=== PATIENT | female | born 2000 | race Caucasian/White ===

== ENCOUNTER 2023-03-28 15:38 | Emergency (ER) | payer BC ==
[2023-03-28 16:39] LABS: BASOPHILS % (AUTO) 0.4 %; EOSINOPHILS # (AUTO) 0.1 10^3/uL (0.0-0.7); EOSINOPHILS % (AUTO) 1.3 %; HCT - HEMATOCRIT 48.4 % (37.0-47.0); HGB - HEMOGLOBIN 16.5 g/dL (12.0-16.0); LYMPHOCYTES # (AUTO) 1.9 10^3/uL (1.5-3.5); LYMPHOCYTES % (AUTO) 23.5 %; MEAN CORPUSCULAR HEMOGLOBIN 29.9 pg (27.0-31.0); MEAN CORPUSCULAR HGB CONC 34.1 g/dL (32.0-36.0); MEAN CORPUSCULAR VOLUME 87.8 fL (81.0-99.0); MONOCYTES # (AUTO) 0.6 10^3/uL (0.0-1.0); MONOCYTES % (AUTO) 7.6 %; NEUTROPHILS # (AUTO) 5.3 10^3/uL (1.5-6.6); NEUTROPHILS % (AUTO) 66.9 %; PLT - PLATELET COUNT 165 10^3/uL (130-450); RED BLOOD COUNT 5.51 10^6/uL (4.20-5.40); WHITE BLOOD COUNT 7.9 x10^3/uL (4.8-10.8)
[2023-03-28 16:45] LABS: BILIRUBIN,URINE NEGATIVE (NEGATIVE); GLUCOSE, URINE (UA) NEGATIVE (NEGATIVE); KETONES,URINE (UA) 15 mg/dL (NEGATIVE); LEUKOCYTE ESTERASE, URINE SMALL (NEGATIVE); NITRITE,URINE POSITIVE (NEGATIVE); OCCULT BLOOD,URINE NEGATIVE (NEGATIVE); PH,URINE 5.5 PH (5.0-7.5); PROTEIN,URINE NEGATIVE (NEGATIVE); UROBILINOGEN,URINE 0.2 (NORMAL) E.U./dL (NORMAL)
[2023-03-28 16:51] LABS: CLARITY,URINE HAZY (CLEAR); HCG UR QUAL NEGATIVE
--- NOTE | 2023-03-28 16:55 | ED Physician Documentation ---
PD HPI ABD PAIN - Stated complaint Stated Complaint: ABD PX,LT LEG PX - Chief complaint Chief Complaint: Abd Pain - History obtained from History obtained from: Patient - History of Present Illness Timing - onset: How many days ago (has had lower abd/pelvic pain fo the past 5-6 days. Then fell today, landing onto buttock, with pain to left hip and iliac crest area.) Timing - duration: Days (5-6 days for pelvic pain and today for hip injury.) Timing - details: Abrupt onset Quality: Cramping, Aching, Pain Radiation: No: Lower back, Left flank, Right flank Associated symptoms: Nausea. No: Fever, Vomiting, Diarrhea, Vaginal bleeding, Vaginal dc Similar symptoms before: Has not had sx before Review of Systems Constitutional: denies: Fever, Chills : denies: Dysuria, Discharge, Vaginal bleeding Skin: denies: Rash, Lesions Neurologic: denies: Focal weakness, Numbness PD PAST MEDICAL HISTORY - Past Medical History Past Medical History: No - Past Surgical History Past Surgical History: No - Present Medications Home Medications: Ambulatory Orders Medication Instructions Recorded Confirmed Ibuprofen [Motrin] 600 mg PO TID PRN #25 tab 03/28/23 cephALEXin [Keflex] 500 mg PO TID #20 cap 03/28/23 - Allergies Allergies/Adverse Reactions: Allergies Allergy/AdvReac Type Severity Reaction Status Date / Time No Known Drug Allergies Allergy Verified 03/28/23 15:59 - Social History Does the pt smoke?: No Smoking Status: Never smoker PD ED PE NORMAL - Vitals Vital signs reviewed: Yes - General General: Alert and oriented X 3, Well developed/nourished, Other (appears in pain with left hip and lower back movement. ) - Abdomen Abdomen: Normal bowel sounds, Soft, Non distended, No organomegaly, Other (tender in lower abd mid and left more without guarding nor percussion tenderness. Consider ovarian/uterine. Can check UA. ) - Female Female : Deferred - Derm Derm: Normal color, Warm and dry - Extremities Extremities: Other (left lateral hip at greater trochanter with some tenderness but no deformity. No pain with distraction manually of hip nor with rotation/impaction. Low back soft tissue tender at iliac crest and mid SI area. ) - Neuro Neuro: Alert and oriented X 3, No motor deficit, No sensory deficit Results - Vitals Vitals: Oxygen O2 Source Room air - Labs Labs: Microbiology 03/28/23 16:40 Urine Culture - Preliminary Urine,Clean Catch Laboratory Tests 03/28/23 03/28/23 03/28/23 16:28 16:28 16:40 WBC 7.9 RBC 5.51 H Hgb 16.5 H Hct 48.4 H MCV 87.8 MCH 29.9 MCHC 34.1 RDW 13.0 Plt Count 165 MPV 12.0 H Neut # (Auto) 5.3 Lymph # (Auto) 1.9 [place] # (Auto) 0.6 Eos # (Auto) 0.1 Baso # (Auto) 0.0 Absolute Nucleated RBC 0.00 Nucleated RBC % 0.0 Sodium 139 Potassium 3.7 Chloride 105 Carbon Dioxide 26 Anion Gap 8.0 BUN 8 Creatinine 0.7 Estimated GFR (MDRD) 106 Glucose 94 Calcium 10.4 H Total Bilirubin 0.8 AST 25 ALT 70 H Alkaline Phosphatase 88 Total Protein 8.1 Albumin 5.2 Globulin 2.9 Albumin/Globulin Ratio 1.8 Lipase 17 Urine Color YELLOW Urine Clarity HAZY Urine pH 5.5 Ur Specific [place] 1.025 Urine Protein NEGATIVE Urine Glucose (UA) NEGATIVE Urine Ketones 15 H Urine Occult Blood NEGATIVE Urine Nitrite POSITIVE H Urine Bilirubin NEGATIVE Urine Urobilinogen 0.2 (NORMAL) Ur Leukocyte Esterase SMALL H Urine RBC 0-5 Urine WBC 6-10 H Ur Squamous Epith Cells NONE SEEN Urine Bacteria Moderate H Ur Microscopic Review INDICATED Urine Culture Comments INDICATED Urine HCG, Qual NEGATIVE - Rads (name of study) left hip and pelvis Relevant Findings:: Prelim report reviewed (no fractures nor acute abnnormalities. 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 Pelvic US no acute process. Presume ovarian inflammation/pains as she is midcycle-keaton. Can treat with NSAIDs and pain meds/tylenol in addition to abx for likely UTI. ), considered differential (different complaints with days of lower abd/pelvic cramping pain, with some dysuria. No vag bleeding. COnsider HCG, UA, pelvic US. no GI symptoms. Now also with left hip strain after a fall/twist. No radicular symptoms. ), d/w patient Departure - Departure Disposition: 01 Home, Self Care Clinical Impression: Hip strain, Fall from slip, trip, or stumble, Lower abdominal pain, UTI (urinary tract infection) Condition: Stable Record reviewed to determine appropriate education?: Yes Instructions: ED Strain Muscle Ext, ED UTI Cystitis Female Prescriptions: cephALEXin [Keflex] 500 mg PO TID #20 cap Ibuprofen [Motrin] 600 mg PO TID PRN #25 tab PRN Reason: Pain Comments: Your urine does show signs of a bladder infection. Hopefully this is the simple cause for your lower abdominal pain over the past several days. We can treat it with cephalexin 3 times daily for the next week. I would also suggest use of ibuprofen 3 times daily with food to help with the pains of both that and your hip/pelvis. The x-ray of your hip and pelvis did not show any fractures. More commonly would be some bruising or contusion in the area and also some straining of the ligaments and muscles. We did do a ultrasound of the pelvis to ensure no other complicating factors such as cysts or ruptured cyst etc. Your test is negative. Stay well-hydrated. Use the above medications of ibuprofen and cephalexin. Add Tylenol 500 to 650 mg every 4-6 hours if needed for pains. Recheck if not improving well over the next several days. Activity as tolerated. I sent your prescriptions to your preferred pharmacy. Forms: PCP List Discharge Date/Time: 03/28/23 20:10
[2023-03-28 17:05] LABS: ALBUMIN 5.2 g/dL (3.2-5.5); ALBUMIN/GLOBULIN RATIO 1.8 (1.0-2.2); BILIRUBIN,TOTAL 0.8 mg/dL (0.2-1.0); CALCIUM 10.4 mg/dL (8.5-10.3); CREATININE 0.7 mg/dL (0.6-1.3); POTASSIUM 3.7 mmol/L (3.5-4.5); TOTAL PROTEIN 8.1 g/dL (6.4-8.9)
[2023-03-28 17:17] LABS: BACTERIA,URINE Moderate /HPF (None Seen); RBC,URINE 0-5 /HPF (0-5); SQUAMOUS EPITHELIAL CELL,UR NONE SEEN (<= Few)
--- NOTE | 2023-03-28 17:49 | XRAY Report ---
PROCEDURE: Hip w/Pelvis 2-3V LT INDICATIONS: fall with left hip/pelvic pain TECHNIQUE: AP pelvis with lateral view(s) of the left hip(s). COMPARISON: None. FINDINGS: Bones: No fractures or dislocations. No suspicious bony lesions. Soft tissues: No suspicious soft tissue calcifications or masses. IMPRESSION: No visualized acute fracture or dislocation. However, occult injury cannot be excluded. Recommend pierre rt interval imaging follow-up in 7-10 days as clinically indicated for additional evaluation. Reviewed by: Luanne Jorgensen MD on 03/28/2023 5:48 PM PST Approved by: Luanne Jorgensen MD on 03/28/2023 5:48 PM PST Station ID: [id number]
[2023-03-28] MEDS ORDERED: cephALEXin 250 MG CAPSULE PO STA (18:26)
--- NOTE | 2023-03-28 20:06 | Ultrasound Report ---
PROCEDURE: Pelvic w/Doppler Complete INDICATIONS: lower pelvic pain for a week TECHNIQUE: Real-time scanning was performed of the pelvic organs, with image documentation. Doppler interrogati on was performed of the ovaries bilaterally. COMPARISON: None. FINDINGS: Uterus: Uterus is anteverted and normal in size at 6.9 x 2.9 x 4.4 cm. The myometrium is homogeneou s. The endometrium measures 6 mm in combined thickness. Ovaries: The right ovary measures 3.8 x 2.1 x 3.2 cm, with a calculated ovarian volume of 13 cc. Th e left ovary measures 4.1 x 2.1 x 1.7 cm, with a calculated ovarian volume of 8 cc. Appropriate bloo d flow to the ovaries with Doppler interrogation. Less than 12 follicles can be seen in each ovary. No adnexal masses are seen. No cystic lesions measuring greater than 3 cm. Other: No pathologic free abdominal or pelvic fluid. IMPRESSION: Normal Doppler flow to the ovaries. Unremarkable pelvic ultrasound. Reviewed by: Augie Smith on 03/28/2023 8:05 PM [facility] Approved by: Augie Smith on 03/28/2023 8:05 PM [facility] Station ID: [id number]
[2023-03-28 20:15] VITALS: BP 110/69; O2SAT 98
--- NOTE | 2023-03-31 04:50 | ED Physician Documentation ---
ED Addendum - Addendum Addendum: 03/31/23 04:49 I was presented with a culture results in the morning on 03-31-2023, indicating cephalosporin resistance on the culture from the patient's urine. Patient has no known drug allergies, so I did send a prescription for ciprofloxacin, to which the bacteria is sensitive, to the [facility] pharmacy for the patient. Nursing staff was instructed to call the patient and let her know to go today and pick the new antibiotic up and start it today and stop taking the Keflex.
== END 2023-03-28 20:10 | disposition home or self-care (01) ==
LOC: ED 15:38
DX: S76.012A Strain of muscle, fascia and tendon of left hip, initial encounter (principal); W01.0XXA Fall on same level from slipping, tripping and stumbling without subsequent striking against object, initial encounter; N39.0 Urinary tract infection, site not specified
CPT/HCPCS: 36415; 73502; 76856; 80053; 81001; 81025; 83690; 85025; 87077; 87086; 87181; 93975; 99284; A9270; 81003

== ENCOUNTER 2023-10-29 13:51 | Emergency (ER) | payer BC ==
[2023-10-29 14:46] LABS: BASOPHILS % (AUTO) 0.6 %; EOSINOPHILS # (AUTO) 0.3 10^3/uL (0.0-0.7); EOSINOPHILS % (AUTO) 3.6 %; HGB - HEMOGLOBIN 14.8 g/dL (12.0-16.0); LYMPHOCYTES # (AUTO) 2.4 10^3/uL (1.5-3.5); LYMPHOCYTES % (AUTO) 33.4 %; MEAN CORPUSCULAR HEMOGLOBIN 29.5 pg (27.0-31.0); MEAN CORPUSCULAR HGB CONC 32.9 g/dL (32.0-36.0); MEAN CORPUSCULAR VOLUME 89.6 fL (81.0-99.0); MONOCYTES # (AUTO) 0.6 10^3/uL (0.0-1.0); NEUTROPHILS # (AUTO) 3.9 10^3/uL (1.5-6.6); NEUTROPHILS % (AUTO) 54.1 %; PLT - PLATELET COUNT 198 10^3/uL (130-450); RED BLOOD COUNT 5.02 10^6/uL (4.20-5.40); RED CELL DISTRIBUTION WIDTH 12.6 % (12.0-15.0); WHITE BLOOD COUNT 7.1 x10^3/uL (4.8-10.8)
[2023-10-29] MEDS: SODIUM CHLORIDE 0.9% 1,000 ML IV STA (14:50)
[2023-10-29 14:58] LABS: ALBUMIN 4.4 g/dL (3.2-5.5); ALBUMIN/GLOBULIN RATIO 1.5 (1.0-2.2); BILIRUBIN,TOTAL 0.3 mg/dL (0.2-1.0); CREATININE 0.7 mg/dL (0.6-1.3); POTASSIUM 3.5 mmol/L (3.5-4.5); TOTAL PROTEIN 7.3 g/dL (6.4-8.9)
[2023-10-29 15:34] LABS: BILIRUBIN,URINE NEGATIVE (NEGATIVE); GLUCOSE, URINE (UA) NEGATIVE (NEGATIVE); KETONES,URINE (UA) NEGATIVE (NEGATIVE); LEUKOCYTE ESTERASE, URINE NEGATIVE (NEGATIVE); NITRITE,URINE NEGATIVE (NEGATIVE); OCCULT BLOOD,URINE NEGATIVE (NEGATIVE); PROTEIN,URINE NEGATIVE (NEGATIVE); UROBILINOGEN,URINE 0.2 (NORMAL) E.U./dL (NORMAL)
[2023-10-29 15:36] LABS: CLARITY,URINE CLEAR (CLEAR); HCG UR QUAL NEGATIVE
--- NOTE | 2023-10-29 15:38 | ED Physician Documentation ---
History of Present Illness - Stated complaint Stated Complaint: DIZZINESS,LIGHTHEADED - Chief complaint Chief Complaint: General - History obtained from History obtained from: Patient - History of Present Illness Pain level max: 0 Pain level now: 0 - Additonal information Additional information: Patient is a 23-year-old female who presents to the emergency department complaining of lightheadedness intermittently for about the past week. She states that if she stands up quickly she feels lightheaded like she is going to pass out. 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 She states she does not drink much water. Does not use energy drinks. No smoking, no vaping. No chest pain. No palpitations. No falls. No loss of consciousness. No spinning. No recent illnesses. Denies any possibility of . No urinary symptoms. Occasionally has small intermittent headaches, none currently. Headaches are not severe. Better with lying down or sitting, worse with standing. Review of Systems Constitutional: denies: Fever GI: denies: Vomiting : denies: Now EGA Skin: denies: Rash Musculoskeletal: denies: Neck pain, Back pain Neurologic: denies: Focal weakness, Numbness, Seizure, Confused, Head injury PD PAST MEDICAL HISTORY - Past Medical History Past Medical History: No - Past Surgical History Past Surgical History: No - Allergies Allergies/Adverse Reactions: Allergies Allergy/AdvReac Type Severity Reaction Status Date / Time No Known Drug Allergies Allergy Verified 10/29/23 13:59 - Social History Does the pt smoke?: No Smoking Status: Never smoker Does the pt drink ETOH?: No Does the pt have substance abuse?: No - Immunizations Immunizations are current?: Yes PD ED PE NORMAL - Vitals Vital signs reviewed: Yes - General General: Alert and oriented X 3, No acute distress, Well developed/nourished - HEENT HEENT: Atraumatic, PERRL, EOMI, Ears normal, Moist mucous membranes, Pharynx benign - Neck Neck: Supple, no meningeal sign, No bony TTP - Cardiac Cardiac: RRR, Strong equal pulses - Respiratory Respiratory: No respiratory distress, Clear bilaterally - Abdomen Abdomen: Soft, Non tender, Non distended - Derm Derm: Warm and dry - Extremities Extremities: No edema, No calf tenderness / cord - Neuro Neuro: Alert and oriented X 3, 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 Negative Hallpike.) Eye Opening: Spontaneous Motor: Obeys Commands Verbal: Oriented GCS Score: 15 - Psych Psych: Normal mood, Normal affect Results - Vitals Vitals: Vital Signs - 24 hr 10/29/23 10/29/23 10/29/23 13:55 14:34 15:43 Temperature 36.7 C Heart Rate 89 70 Heart Rate [ 66 Sitting] Heart Rate [ 69 Standing] Heart Rate [ 68 Supine] Respiratory 16 16 Rate Blood Pressure 123/74 Blood Pressure 115/82 H [Sitting] Blood Pressure 118/79 [Standing] Blood Pressure 106/69 [Supine] O2 Saturation 98 100 Oxygen O2 Source Room air - EKG (time done) 1500 EKG releavant findings:: EKG personally interpreted by author of this note. Relevant findings are: Rate: Rate (enter#) (73) Rhythm: NSR Alexander: Normal Intervals: Normal OR QRS: Normal Ischemia: Normal ST segments - Labs Labs: Laboratory Tests 10/29/23 10/29/23 10/29/23 14:41 14:41 15:21 WBC 7.1 RBC 5.02 Hgb 14.8 Hct 45.0 MCV 89.6 MCH 29.5 MCHC 32.9 RDW 12.6 Plt Count 198 MPV 11.0 H Neut # (Auto) 3.9 Lymph # (Auto) 2.4 [place] # (Auto) 0.6 Eos # (Auto) 0.3 Baso # (Auto) 0.0 Absolute Nucleated RBC 0.00 Nucleated RBC % 0.0 Sodium 137 Potassium 3.5 Chloride 105 Carbon Dioxide 28 Anion Gap 4.0 L BUN 19 Creatinine 0.7 Estimated GFR (MDRD) 105 Glucose 118 H Calcium 10.0 Total Bilirubin 0.3 AST 15 ALT 24 Alkaline Phosphatase 63 Total Protein 7.3 Albumin 4.4 Globulin 2.9 Albumin/Globulin Ratio 1.5 Lipase 31 Urine Color YELLOW Urine Clarity CLEAR Urine pH 6.0 Ur Specific [place] >=1.030 H Urine Protein NEGATIVE Urine Glucose (UA) NEGATIVE Urine Ketones NEGATIVE Urine Occult Blood NEGATIVE Urine Nitrite NEGATIVE Urine Bilirubin NEGATIVE Urine Urobilinogen 0.2 (NORMAL) Ur Leukocyte Esterase NEGATIVE Ur Microscopic Review NOT INDICATED Urine Culture Comments NOT INDICATED Urine HCG, Qual NEGATIVE PD Medical Decision Making - ED course Complexity details: reviewed results, re-evaluated patient, considered differential, d/w patient ED course: Patient is well-appearing, nontoxic. Afebrile. No significant lab abnormalities other than elevated BUN to creatinine ratio and a concentrated urine consistent with dehydration. Given IV fluids and does not feel lightheaded anymore. Does not have any vertiginous symptoms. No nystagmus. No focal neurological deficits. EKG is normal. Patient is not orthostatic in the emergency department but had received approximately 500 mL of fluid before the orthostatic vital signs. Recommend that she increase her fluid intake at home and follow-up with her doctor for further care. She will return if she worsens. Patient counseled regarding signs and symptoms for which I believe and urgent re-evaluation would be necessary. Patient with good understanding of and agreement to plan and is comfortable going home at this time This document was made in part using voice recognition software. While efforts are made to proofread this document, sound alike and grammatical errors may occur. Departure - Departure Disposition: 01 Home, Self Care Clinical Impression: Lightheadedness, Dehydration Condition: Good Instructions: ED Dehydration Follow-Up: your,doctor in 1 week [Other] Comments: Your blood work does not show any acute abnormalities other than being consistent with dehydration. Make sure you are drinking plenty of water at home, you can add electrolyte packets to the water as well if you like. Please follow-up with your doctor for further care. Your neurological exam and cardiac testing is normal as well. Please return if you worsen. Forms: PCP List Discharge Date/Time: 10/29/23 16:02
[2023-10-29 15:44] VITALS: BP 106/69
[2023-10-29 15:45] VITALS: O2SAT 100
== END 2023-10-29 16:02 | disposition home or self-care (01) ==
LOC: ED 13:51
DX: E86.0 Dehydration (principal); R42 Dizziness and giddiness
CPT/HCPCS: 36415; 80053; 81001; 81003; 81025; 83690; 85025; 87086; 93005; 96360; 99283